=== PATIENT | male | born 1990 | race Two or more races ===

== ENCOUNTER 2020-11-15 01:42 | Emergency (ER) | payer MEDICAID, OTHER ==
[~2020-11-15] VITALS: Ht 175.3 cm; Wt 70.0 kg
[2020-11-15 02:00] VITALS: BP 116/70
== END 2020-11-15 03:36 | disposition home or self-care (01) ==
LOC: ER 01:42
DX: F12.129 Cannabis abuse with intoxication, unspecified (principal); R03.0 Elevated blood-pressure reading, without diagnosis of hypertension
CPT/HCPCS: 99283